=== PATIENT | male | born 1945 | race Caucasian/White ===

== ENCOUNTER → 2017-08-13 | Outpatient (CLI) | payer MEDICARE ==
[2017-08-13 10:49] LABS: Blood Urea Nitrogen 32 mg/dL (9-20)
--- NOTE | 2017-08-13 14:54 | CT ---
EXAMINATION TYPE: CT abdomen pelvis w con DATE OF EXAM: 08/13/2017 COMPARISON: NONE INDICATION: Prostate Cancer DLP: 1824 mGycm, Automated exposure control for dose reduction was used. CONTRAST: 100 ml mL of Omnipaque 300. Study performed with Oral Contrast TECHNIQUE: Axial images were obtained from above the diaphragm to the pubic rami in the axial plane a t 5 mm thick sections. Reconstructed images are reviewed on the computer in the coronal plane. FINDINGS: Limited CT sections are obtained the lung bases. There is a 0.4 cm density within the posterior late ral right lung base. Moderate-sized hiatal hernia is present.. CT ABDOMEN: Liver: Multiple small hypodensities are scattered to liver most likely are hepatic cysts. Spleen: Normal Pancreas: Normal Adrenal glands: The adrenal glands are normal. Gallbladder: Normal Kidneys: There are are extensive large bilateral cysts on the kidneys. One of these contains some wal l calcification at the right inferior lateral kidney. There is a punctate nonobstructing stone in the mid left kidney measuring 0.4 cm. Aorta: Vascular calcification is within the aorta. Inferior vena cava: Normal. CT PELVIS: Loops of bowel within the abdomen and pelvis are normal. There are loops of bowel which are incom pletely distended or lack oral contrast limiting their evaluation. Appendix: The appendix appears normal in caliber. However, this extends into a right inguinal hernia. Urinary bladder: Normal. Genitourinary structures: Prostate is prominent. Calcifications are within the prostate. Osseous structures: No suspicious lytic or sclerotic lesions. IMPRESSIONS: 1. Multiple large bilateral renal cysts. Correlate for polycystic kidney disease. 2. Enlarged prostate. The patient's prostate cancer is not identified. 3. Right inguinal hernia which contains of bowel as well as the appendix.
--- NOTE | 2017-08-13 16:48 | NM ---
EXAMINATION TYPE: NM bone scan whole body DATE OF EXAM: 08/13/2017 COMPARISON: Correlation CT 08/13/2017 HISTORY: 72-year-old male history of prostate cancer 3 years ago, bilateral hip and lumbar pain for m any years TECHNIQUE: Delayed whole-body scanning was performed following the injection of 26.6 mCi Tc 99m MDP. Images acquired 3 hours post injection in the anterior and posterior projection. FINDINGS: Delayed images show degenerative changes at the shoulders, sternoclavicular joints, posterior element s of the mid thoracic spine. No suspicious distribution of tracer to suggest osseous metastatic disea se. IMPRESSION: No scintigraphic evidence for osseous metastatic disease.
== END | disposition home or self-care (01) ==
LOC: RADNMMAIN 10:09
PROVIDERS: ATTEND Radiology Radiation Oncology
DX: Z08 Encounter for follow-up examination after completed treatment for malignant neoplasm (principal); N28.1 Cyst of kidney, acquired; N40.0 Benign prostatic hyperplasia without lower urinary tract symptoms; K40.90 Unilateral inguinal hernia, without obstruction or gangrene, not specified as recurrent; Z85.46 Personal history of malignant neoplasm of prostate; Z91.030 Bee allergy status
CPT/HCPCS: 82565; 84520; 74177; 36415; 78306; A9503; Q9967

== ENCOUNTER → 2018-03-28 | Outpatient (CLI) | payer MEDICARE | END | disposition home or self-care (01) | LOC: LABWHC1 10:13 | PROVIDERS: ATTEND Radiology Radiation Oncology | DX: C61 Malignant neoplasm of prostate (principal) | CPT/HCPCS: 36415; 84153 ==

== ENCOUNTER → 2018-10-10 | Outpatient (CLI) | payer MEDICARE | LOC: LABWHC1 13:27 | PROVIDERS: ATTEND Radiology Radiation Oncology | DX: C61 Malignant neoplasm of prostate (principal); Z79.818 Long term (current) use of other agents affecting estrogen receptors and estrogen levels | CPT/HCPCS: 36415; 84153 ==

== ENCOUNTER → 2018-10-24 | Outpatient (CLI) | payer MEDICARE ==
[2018-10-24 13:04] LABS: HCT 38.6 % (39.0-53.0); HGB 12.2 gm/dL (13.0-17.5); MCHC 31.6 g/dL (31.0-37.0); MCV 85.2 fL (80.0-100.0); Mean Platelet Volume 7.7; Platelet Count 202 k/uL (150-450); RBC 4.53 m/uL (4.30-5.90); RDW 13.2 % (11.5-15.5); WBC 7.6 k/uL (3.8-10.6)
[2018-10-24 14:06] LABS: Eosinophils # (M) 0.08 k/uL (0-0.7); Lymphocytes # (M) 1.75 k/uL (1.0-4.8); Monocytes # (M) 1.06 k/uL (0-1.0); Neutrophils # (M) 4.71 k/uL (1.3-7.7); Neutrophils % (M) 62 %; Nucleated Red Blood Cells 0 /100 WBC (0-0); Total Cells Counted 100
[2018-10-24 19:49] LABS: Anion Gap 7.7 mmol/L (4.00-12.00); Carbon Dioxide 29.3 mmol/L (21.6-31.8); Potassium 3.8 mmol/L (3.5-5.5)
[2018-10-24 19:56] LABS: T4, Free (Free Thyroxine) 1.3 ng/dL (0.80-1.80)
== END | disposition home or self-care (01) ==
LOC: LABWHC1 12:11
PROVIDERS: ATTEND Radiology Radiation Oncology
DX: C61 Malignant neoplasm of prostate (principal); Z79.818 Long term (current) use of other agents affecting estrogen receptors and estrogen levels
CPT/HCPCS: 36415; 80048; 84439; 84443; 84481; 85025

== ENCOUNTER → 2019-04-02 | Outpatient (CLI) | payer MEDICARE | END | disposition home or self-care (01) | LOC: LABWHC1 15:09 | PROVIDERS: ATTEND Radiology Radiation Oncology | DX: C61 Malignant neoplasm of prostate (principal); Z79.818 Long term (current) use of other agents affecting estrogen receptors and estrogen levels | CPT/HCPCS: 36415; 84153 ==

== ENCOUNTER → 2019-11-11 | Outpatient (CLI) | payer MEDICARE ==
[2019-11-11 12:32] LABS: HCT 45.5 % (39.0-53.0); HGB 14.4 gm/dL (13.0-17.5); MCH 29.5 pg (25.0-35.0); MCHC 31.8 g/dL (31.0-37.0); MCV 92.9 fL (80.0-100.0); Mean Platelet Volume 8.1; Platelet Count 215 k/uL (150-450); RBC 4.89 m/uL (4.30-5.90); RDW 12.8 % (11.5-15.5)
[2019-11-11 13:07] LABS: Basophils # (M) 0.09 k/uL (0-0.2); Eosinophils # (M) 0.18 k/uL (0-0.7); Lymphocytes # (M) 3.06 k/uL (1.0-4.8); Monocytes # (M) 0.45 k/uL (0-1.0); Neutrophils # (M) 5.22 k/uL (1.3-7.7); Neutrophils % (M) 58 %; Nucleated Red Blood Cells 0 /100 WBC (0-0); Total Cells Counted 100
== END | disposition home or self-care (01) ==
LOC: LABWHC1 11:25
PROVIDERS: ATTEND Radiology Radiation Oncology
DX: C61 Malignant neoplasm of prostate (principal); Z79.818 Long term (current) use of other agents affecting estrogen receptors and estrogen levels
CPT/HCPCS: 36415; 84153; 85025

== ENCOUNTER → 2020-07-12 | Outpatient (CLI) | payer MEDICARE | END | disposition home or self-care (01) | LOC: LABWHC1 16:20 | PROVIDERS: ATTEND Radiology Radiation Oncology | DX: C61 Malignant neoplasm of prostate (principal); Z79.818 Long term (current) use of other agents affecting estrogen receptors and estrogen levels | CPT/HCPCS: 36415; 84153 ==

== ENCOUNTER → 2020-08-19 | Outpatient (CLI) | payer MEDICARE ==
[2020-08-20 00:27] LABS: African American GFR (CKD) 84.4 (60.0-200.0); Anion Gap 4.6 mmol/L (4.00-12.00); Carbon Dioxide 31.4 mmol/L (21.6-31.8); Non-African American GFR(CKD) 72.8 (60.0-200.0); Potassium 4.1 mmol/L (3.5-5.5)
== END | disposition home or self-care (01) ==
LOC: LABWHC1 15:39
PROVIDERS: ATTEND Internal Medicine Interventional Cardiology
DX: I10 Essential (primary) hypertension (principal)
CPT/HCPCS: 36415; 80051; 82565; 84520

== ENCOUNTER → 2020-08-24 | Outpatient (CLI) | payer MEDICARE ==
--- NOTE | 2020-08-24 12:05 | US ---
EXAMINATION TYPE: US liver DATE OF EXAM: 08/24/2020 COMPARISON: CT August 13, 2017 CLINICAL HISTORY: K76.89 LIVER CYST. Liver Cyst EXAM MEASUREMENTS: Liver Length: 14.5 cm Gallbladder Wall: 0.1 cm CBD: 0.4 cm Right Kidney: 11.8 x 6.3 x 5.2 cm Pancreas: Obscured by bowel gas Liver: Limited visualization shows two probable cysts both in right lobe 1)= near GB- 1.7 x 1.8 x 1. 8 cm 2)= anterior to right kidney- 1.2 x 0.8 x 1.1 cm Gallbladder: Distended with probable "gravel" stones at dependent portion Evidence for sonographic Espinosa's sign: No CBD: wnl Right Kidney: Multicystic with multiple, large cysts- largest appearing at upper pole= 14.7 x 11.6 x 13.6 cm Technologist webster two small thin-walled cysts in liver on images saved. More hypoechoic small lesion s scattered throughout the liver on 2018 CT. Enlarged right kidney with innumerable thin-walled cysts correlates with suspected underlying polycystic kidney disease. Due to size difficult to accurately evaluate on ultrasound. IMPRESSION: Suboptimal study. There are 2 thin-walled cysts within the liver identified on ultrasound , additional lesions on CT less well seen. No concerning mass identified on images saved.
== END | disposition home or self-care (01) ==
LOC: RADUSWWP 11:00
PROVIDERS: ATTEND Internal Medicine Interventional Cardiology
DX: K76.89 Other specified diseases of liver (principal)
CPT/HCPCS: 76705

== ENCOUNTER → 2021-01-06 | Outpatient (CLI) | payer MEDICARE | END | disposition home or self-care (01) | LOC: LABWHC1 16:07 | PROVIDERS: ATTEND Radiology Radiation Oncology | DX: C61 Malignant neoplasm of prostate (principal); Z79.818 Long term (current) use of other agents affecting estrogen receptors and estrogen levels | CPT/HCPCS: 36415; 84153 ==

== ENCOUNTER → 2022-11-09 | Outpatient (CLI) | payer MEDICARE ==
[2022-11-09 22:43] LABS: African American GFR (CKD) 78.4 (60.0-200.0); Albumin 3.6 g/dL (3.8-4.9); Albumin/Globulin Ratio 1.73 (1.60-3.17); Anion Gap 8.4 mmol/L (10.00-18.00); BUN/Creat Ratio 24.38 Ratio (12.00-20.00); Blood Urea Nitrogen 25.6 mg/dL (9.0-27.0); Calcium 9.1 mg/dL (8.7-10.3); Carbon Dioxide 29.4 mmol/L (20.0-27.5); Globulin 2.1 g/dL (1.6-3.3); Non-African American GFR(CKD) 67.7 (60.0-200.0); Potassium 3.8 mmol/L (3.5-5.5); Total Bilirubin 0.4 mg/dL (0.30-1.20); Total Protein 5.7 g/dL (6.2-8.2)
== END | disposition home or self-care (01) ==
LOC: LABWHC1 12:43
PROVIDERS: ATTEND Internal Medicine Interventional Cardiology
DX: R60.0 Localized edema (principal)
CPT/HCPCS: 36415; 80053; 83880